=== PATIENT | female | born 1985 | race Two or more races ===

== ENCOUNTER 2023-04-15 14:40 | Emergency (ER) | payer OTHER ==
[~2023-04-15] VITALS: Ht 172.7 cm; Wt 122.5 kg
== END 2023-04-15 18:54 | disposition home or self-care (01) ==
LOC: ER 14:40
DX: S82.62XA Displaced fracture of lateral malleolus of left fibula, initial encounter for closed fracture (principal); W18.30XA Fall on same level, unspecified, initial encounter; Y93.89 Activity, other specified; Y92.830 Public park as the place of occurrence of the external cause; Y99.9 Unspecified external cause status